=== PATIENT | female | born 1945 | race Caucasian/White ===

== ENCOUNTER 2017-12-24 14:13 | Observation (INO) | payer MEDICARE ==
[2017-12-24] MEDS ORDERED: 0.9 % SODIUM CHLORIDE 1,000 ML BAG IV ONE ×3 (14:41→17:34)
[2017-12-24] MEDS ORDERED: ONDANSETRON HCL IV 4 MG/2 ML VIAL IVP ONE ×2 (14:41→16:44)
--- NOTE | 2017-12-24 14:45 | Emergency Department Record ---
History of Present Illness - General Chief Complaint: Passed out Stated Complaint: WEAK Time Seen by Provider: 12/24/17 14:35 Source: Patient Mode of Arrival: Wheelchair Limitations: No limitations - History of Present Illness Initial Comments: The patient is here due to not feeling well for the last 2 weeks. She has had intermittent weakness and nausea with a bad cough. There has been no reported fever, chills, or CP but she has been very fatigued. The patient states her recently had food poisoning and when she was over in the [facility] getting and xray she became very weak and possibly passed out and vomited and possibly had diarrhea. MD Complaint: Almost passed out, Collapsed, [place] faint Onset/Timin -: Minutes(s) Prodromal Symptoms: Lightheaded -: Second(s) Injuries Sustained Associated with Event: None Current Symptoms: Nausea, Weakness Context: Other Treatments Prior to Arrival: None - [place] Coma Scale Eye Response: (4) Open spontaneously Motor Response: (6) Obeys commands Verbal Response: (5) Oriented [place] Total: 15 - Related Data On Hormonal Control: No Allergies Allergy/AdvReac Type Severity Reaction Status Date / Time Sulfa (Sulfonamide Allergy Unknown Unverified 07/13/17 16:15 Antibiotics) Travel Screening - Travel/Exposure Within Last 30 Days Have you traveled within the last 30 days?: No Review of Systems Constitutional: Reports: Chills, Malaise. Denies: Fever Eyes: Denies: Eye discharge ENT: Reports: Congestion Respiratory: Reports: Cough. 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) - CARDIOVASCULAR Hx Cardio Disorders: No - NEURO Hx Neuro Disorders: Yes Hx Dizziness: Yes (syncopal episodes) - GI Hx GI Disorders: No - Hx Genitourinary Disorders: No - ENDOCRINE Hx Endocrine Disorders: Yes Hx Thyroid Disease: Yes - MUSCULOSKELETAL Hx Musculoskeletal Disorders: Yes Hx Arthritis: Yes (hands/neck/feet) - PSYCH Hx Psych Problems: No - HEMATOLOGY/ONCOLOGY Hx Hematology/Oncology Disorders: Yes Hx Anemia: Yes Hx Blood Transfusions: No Family Medical History Any Significant Family History?: Yes Hx Cancer: Father, Mother, Grandparents *Cancer Comment: lung, pancreatic Hx Diabetes: Father, Mother, Grandparents Physical Exam - General General Appearance: Alert, Oriented x3, Cooperative, Mild distress (due to weakness.) - Head Head exam: Atraumatic, Normocephalic - Eye Eye exam: Normal appearance, PERRL Pupils: Normal accommodation - ENT ENT exam: Normal exam Throat exam: Normal inspection. negative: Tonsillar erythema, Tonsillar exudate - Neck Neck exam: Normal inspection, Full ROM. negative: Tenderness - Respiratory Respiratory exam: Normal lung sounds bilaterally. negative: Rales, Respiratory distress, Rhonchi, Stridor, Wheezes - Cardiovascular Cardiovascular Exam: Regular rate, Normal rhythm, Normal heart sounds - GI/Abdominal GI/Abdominal exam: Soft, Normal bowel sounds. negative: Tenderness - Extremities Extremities exam: Normal inspection, Full ROM, Normal capillary refill. negative: Tenderness - Back Back exam: Reports: Normal inspection - Neurological Neurological exam: Alert, Oriented X3. negative: Altered, Motor sensory deficit - Skin Skin exam: negative: Rash Course Vital Signs 12/24/17 14:20 Temperature 98.1 F Pulse Rate 75 Respiratory 18 Rate Blood Pressure 142/79 Pulse Ox 89 L - Reevaluation(s) Reevaluation #1: The patient is doing better at this time. She is still having intermittent nausea and vomiting but no diarrhea yet. 12/24/17 17:00 Reevaluation #2: The patient denies any CP or SOB. She is still having intermittent nausea, vomiting and diarrhea. The chest CT did possibly demonstrate an early pneumonia on CT which was consistent with the xray. I also did discuss the R breast CT finding which the patient states is old and due to a previous breast implant. She is encouraged to see her PCP when this illness is gone to double check the findings. Due to the constellation of findings she will be admitted to the hospital for observation, monitoring and further blood testing. 12/24/17 17:51 Medical Decision Making - Data Complexity MDM Data: Labs Ordered and/or Reviewed, X-Ray Ordered and/or Reviewed, EKG Ordered and/or Reviewed - Lab Data Result diagrams: 12/24/17 14:34 12/24/17 14:34 - EKG Data -: EKG Interpreted by Me EKG: No Acute Changes, Normal EKG - Radiology Data Radiology results: Report reviewed (CXR: Atelectasis L base, O/W neg. Chest CT : Neg for PE or Dissection. There is some fluid and calcification under the R breast outside of the chest wall. The patient states it is due to a breast implant that exploded.) Disposition Disposition: Admit Clinical Impression: Pneumonia Qualifiers: Pneumonia type: due to unspecified organism Laterality: left Lung location: lower lobe of lung Qualified Code(s): J18.1 - Lobar pneumonia, unspecified organism Syncope Qualifiers: Syncope type: unspecified Qualified Code(s): R55 - Syncope and collapse Disposition: Still a Patient at [facility] Decision to Admit: Admit from ER Decision to Admit Date: 12/24/17 Decision to Admit Time: 17:54 Accepting Physician: Dinesh Time Discussed w/Accepting Physician: 17:54 Condition: (2) Stable Time of Disposition: 17:55 Quality - Quality Measures Quality Measures: N/A - Blood Pressure Screening View Details: Yes Does Patient Have Any of the Following: No Blood Pressure Classification: Hypertensive Reading Systolic Measurement: 142 Diastolic Measurement: 79 Screening for High Blood Pressure: < Pre-Hypertensive BP, F/U Documented > [ [id number]] Pre-Hypertensive Follow-up Interventions: Referral to alternative/primary care provider.
[2017-12-24] MEDS ORDERED: IPRATROPIUM/ALBUTEROL (0.5MG/3MG) NEB INH ONE (14:46)
[2017-12-24 14:55] LABS: BASO % 0.2 % (0-6); EOS % 2.1 % (0-6); GRAN % 78.4 % (47-80); HEMATOCRIT 48.1 % (35.0-47.0); HEMOGLOBIN 16.2 gm/dl (11.6-16.0); LYMPH % 13.7 % (16-45); MEAN CELL VOLUME 92.9 fl (81-97); MEAN CORPUSCULAR HGB CONC 33.7 g/dl (32-36); MEAN PLATELET VOLUME 9.6 fl (7.4-10.4); MONO % 5.6 % (0-9); PLATELET COUNT 403 K/uL (130-400); RED BLOOD COUNT 5.18 M/uL (3.80-5.40); WHITE BLOOD COUNT W/O DIFF 10.1 K/uL (4.2-12.2)
[2017-12-24 14:57] LABS: MEAN CORPUSCULAR HEMOGLOBIN 31.2 pg (27-33)
[2017-12-24 15:04] LABS: BLOOD UREA NITROGEN 20 mg/dL (8-23); EST GLOMERULAR FILTRATION RATE 58 mL/min
[2017-12-24 15:06] LABS: INR 1.02
[2017-12-24 15:07] LABS: GLUCOSE,RANDOM 130 mg/dL (74-109)
[2017-12-24 15:09] LABS: CREATINE PHOSPHOKINASE 50 U/L (26-192)
[2017-12-24 15:14] LABS: CKMB 1.2 ng/mL (<3.77)
[2017-12-24 15:21] LABS: NTpro B-NATRIURETIC PEPTIDE 72.93 pg/mL (<125)
[2017-12-24 15:37] LABS: INFLUENZA A NEGATIVE (NEGATIVE); INFLUENZA B NEGATIVE (NEGATIVE)
[2017-12-24] MEDS ORDERED: CEFTRIAXONE SODIUM 1 GM in 0.9 % SODIUM CHLORIDE 100ML 100 ML IVPB ONE (16:03)
[2017-12-24] MEDS ORDERED: AZITHROMYCIN 500 MG in 0.9 % SODIUM CHLORIDE 250ML 250 ML IVPB ONE (16:03)
[2017-12-24] MEDS ORDERED: PROMETHAZINE HCL 12.5 MG in 0.9 % SODIUM CHLORIDE 100ML 100 ML IVPB ONE (17:47)
[2017-12-24] MEDS ORDERED: AZITHROMYCIN 500 MG in 0.9 % SODIUM CHLORIDE 250ML 250 ML IVPB SCH (20:07)
[2017-12-24] MEDS ORDERED: 0.9 % SODIUM CHLORIDE 1000ML 1,000 ML IV PRN (20:07)
[2017-12-24] MEDS: CEFTRIAXONE SODIUM 1 GM in 0.9 % SODIUM CHLORIDE 100ML 100 ML IVPB SCH (20:08)
[2017-12-24] MEDS: ACETAMINOPHEN 500 MG TABLET PO PRN (22:04)
[2017-12-24 22:15] LABS: CKMB < 1.0 ng/mL (<3.77)
--- NOTE | 2017-12-25 05:23 | History & Physical ---
History of Present Illness - Date of Service Date of Service for History & Physical: 12/25/17 - History of Present Illness Admitting Diagnosis: 1. Acute Vomiting and Diarrrhea with Dehydration. 2. Syncope and collapse with L sided Pneumonia. History of Present Illness: Karina is a 72 year-old female who presented to the ED on after experiencing a syncopal episode while accompanying her in [facility] here. She stated that she felt faint and vomited once. She stated that over the past 2 weeks, she has felt week, fatigued, and developed a cough. Her history includes hypothyroidism, ex-smoker, right breast implant rupture, pos TB test, and syncopal episodes. In the ED, her oxygen saturation was 89% on room air, RR 18, BP 142/79, HR 75, and T 98.1. Her CBC and CMP were unremarkable, series of troponins did not show any elevation, influenza was negative. Her EKG showed normal sinus rhythm. Her chest x-ray showed mild atelectasis and her CTA demonstrated a patch of atelectasis in her left lower lobe that my demonstrate alveolitis caused by early pneumonia. She was started on IV antibiotics, rocephin 1gm daily and azithromycin 500mg q12h and admitted for observation, monitoring, and treatment of pneumonia. 12/25/17 0930: Pt. is resting comfortably in bed. She states that she feels much improved this morning. She tolerated her breakfast well and she has been up to the bathroom 3 times with loose stool. She states that her was in [facility] on 12/24 with GI symptoms (nausea/vomiting/diarrhea). She is receiving IV fluids 0.9% NaCl at 125ml/hr, and she is drinking fluids without complaint. Pt. has remained afebrile and CBC with diff has remained unremarkable, anion gap returned to normal range at 13.0. PT/OT evals ordered because of syncopal episode and completed- no home pt/ot needs. Pt. states she lives at home with independently. Plan to d/c iv fluids, saline lock, change abx from iv to po and discharge home this afternoon. Travel Screening - Travel/Exposure Within Last 30 Days Have you traveled within the last 30 days?: No - Travel/Exposure Within Last Year Have you traveled outside the [place] in the last year?: No - Additonal Travel Details Have you been exposed to anyone with a communicable illness?: No Review of Systems Constitutional: Reports: Chills, Malaise. Denies: Fever Eyes: Denies: Eye discharge ENT: Reports: Congestion Respiratory: Reports: Cough. Denies: Dyspnea Cardiovascular: Denies: Arrhythmia, Chest pain Endocrine: Reports: Fatigue Gastrointestinal: Denies: Abdominal pain Genitourinary: Denies: Dysuria Musculoskeletal: Denies: Back pain Skin: Reports: As per HPI. Denies: Bruising, Change in color, Change in hair/ nails, Lesions, Pruritus, Rash Neurological: Reports: As per HPI. Denies: Abnormal gait, Confusion, Headache, Numbness, Paresthesias, Seizure, Tingling, Tremors, Vertigo, Weakness Psychiatric: Reports: As per HPI. Denies: Anxiety, Auditory hallucinations, Depression, Homicidal thoughts, Suicidal thoughts, Visual hallucinations Hematological/Lymphatic: Reports: As per HPI. 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) - CARDIOVASCULAR Hx Cardio Disorders: No - NEURO Hx Neuro Disorders: Yes Hx Dizziness: Yes (syncopal episodes) - GI Hx GI Disorders: No - Hx Genitourinary Disorders: No - ENDOCRINE Hx Endocrine Disorders: Yes Hx Diabetes: Yes Hx Thyroid Disease: Yes - MUSCULOSKELETAL Hx Musculoskeletal Disorders: Yes Hx Arthritis: Yes (hands/neck/feet) - PSYCH Hx Psych Problems: No - HEMATOLOGY/ONCOLOGY Hx Hematology/Oncology Disorders: Yes Hx Anemia: Yes Hx Blood Transfusions: No Family Medical History Any Significant Family History?: Yes Hx Cancer: Father, Mother, Grandparents *Cancer Comment: lung, pancreatic Hx Diabetes: Father, Mother, Grandparents H&P Meds/Allergies - Allergies Allergies: Allergies Allergy/AdvReac Type Severity Reaction Status Date / Time Sulfa (Sulfonamide Allergy Unknown Unverified 07/13/17 16:15 Antibiotics) - Active Medications Active Medications: Current Medications Acetaminophen (Tylenol 500mg Tab) 1,000 mg PO Q8H PRN PRN Reason: Pain - General Last Admin: 12/24/17 22:04 Dose: 1,000 mg Sodium Chloride () 1,000 mls @ 125 mls/hr IV .Q8H PRN PRN Reason: LARGE VOLUME IV Ceftriaxone Sodium 1 gm/ (Sodium Chloride) 100 mls @ 200 mls/hr IVPB Q12H [facility] Stop: 12/29/17 20:08 Last Admin: 12/24/17 20:08 Dose: Not Given Azithromycin 500 mg/ Sodium (Chloride) 250 mls @ 250 mls/hr IVPB Q24H [facility] Stop: 12/29/17 20:08 Last Admin: 12/24/17 20:21 Dose: Not Given Levothyroxine Sodium (Synthroid) 100 mcg PO DAILY [facility] Physical Exam - Vital Signs Vital Signs: Vital Signs - Last 24 Hrs Temp Pulse Pulse Resp BP BP Pulse Ox 12/24/17 23:22 99.6 F 99 H 20 117/63 94 L 12/24/17 21:34 88 16 92 L 12/24/17 21:00 88 18 12/24/17 20:07 100.0 F H 116 H 18 166/74 87 L - General General Appearance: Alert, Oriented x3, Cooperative, No acute distress Limitations: No limitations - Head Head exam: Atraumatic, Normocephalic - Eye Eye exam: Normal appearance, PERRL Pupils: Normal accommodation - ENT ENT exam: Normal exam Throat exam: Normal inspection. negative: Tonsillar erythema, Tonsillar exudate - Neck Neck exam: Normal inspection, Full ROM. negative: Tenderness - Respiratory Respiratory exam: Normal lung sounds bilaterally. negative: Rales, Respiratory distress, Rhonchi, Stridor, Wheezes - Cardiovascular Cardiovascular Exam: Regular rate, Normal rhythm, Normal heart sounds - GI/Abdominal GI/Abdominal exam: Soft, Normal bowel sounds. negative: Tenderness - Extremities Extremities exam: Normal inspection, Full ROM, Normal capillary refill. negative: Tenderness - Back Back exam: Reports: Normal inspection - Neurological Neurological exam: Alert, Oriented X3. negative: Altered, Motor sensory deficit - Skin Skin exam: negative: Rash Results - Labs Result Diagrams: 12/25/17 06:16 12/25/17 06:16 Labs Last 24 Hours: Laboratory Results - last 24 hr 12/24/17 21:50 CK-MB (CK-2) < 1.0 Troponin T < 0.010 - Imaging and Cardiology CT scan - chest Status: Report reviewed VTE H&P Assessment - Risk for VTE Risk for VTE: Yes Risk Level: Very Low Risk Assessment Date: 12/25/17 Risk Assessment Time: 12:09 VTE Orders Placed or Will Be Placed: No VTE Reason for No Prophylaxis: Not Indicated (Plan to discharge home this evening, mobility not impaired) Plan - Detailed Diagnosis and Plan (1) Pneumonia Current Visit: Yes Status: Acute Qualifiers: Pneumonia type: due to unspecified organism Laterality: left Lung location: lower lobe of lung Qualified Code(s): J18.1 - Lobar pneumonia, unspecified organism Base Code: J18.9 - PNEUMONIA, UNSPECIFIED ORGANISM Comment: 12/25/17 1100: LLL pneumonia seen of chest CTA. Pt. was started on azithromycin 500mg IV qd and rocephin 1gm q12h IV. Pt. remains afebrile and WBC within normal limits. Plan to change IV antibiotics to PO- Azithromycin 250mg for 4 more days outpatient and cefdinir 300mg bid for 4 more days outpatient. Plan to dischareg home this evening. (2) Diarrhea Current Visit: Yes Status: Acute Base Code: R19.7 - DIARRHEA, UNSPECIFIED Comment: 12/25/17 1100: Pt. states she has had 5 loose stools since she arrived here on 12/24. She denies abdominal cramping or blood in stool. She states she was with her in [place] emergency department yesterday because he was having similar complaints- GI viral infection. Continue to encourage fluids. Plan to monitor for increasing frequency of loose stools. Consider d/c home today unless frequency of loose stools increase, then may obtain stool cultures. (3) Syncope Current Visit: Yes Status: Acute Qualifiers: Syncope type: unspecified Qualified Code(s): R55 - Syncope and collapse Base Code: R55 - SYNCOPE AND COLLAPSE Comment: 12/25/17 1200: Pt. had syncopal episode on 12/24 after experiencing fatigue, weakness and cough for 2 weeks. Pt. denies headache, chest pain, vision change. Per pt.- she has history of several syncopal episodes, usually associated with heat and feelint faint. Pos LLL pneumonia, syncope likely related to pneumonia infection. Continue abx: azithromycin 250mg dialy and cefdinir 300mg bid for 5 days total. PT/OT evaluations ordered and performed- no home PT/OT needs. (4) Full code status Current Visit: Yes Status: Acute Base Code: Z78.9 - OTHER SPECIFIED HEALTH STATUS Comment: 12/25/17- Pt. is full code status
--- NOTE | 2017-12-25 07:01 | RADIOLOGY REPORT ---
EXAM: CHEST, TWO VIEWS HISTORY: SYNCOPAL EPISODE ONE HOUR AGO, VOMITING. TECHNIQUE: Upright PA and lateral views of the chest were obtained. Comparison: Two view chest radiographic examination dated 07/13/17. FINDINGS: The heart is not enlarged and the pulmonary vasculature is nondilated. The aortic knob is atherosclerotic. Minor biapical pleural and parenchymal scarring redemonstrated. There is mild elevation of the left hemidiaphragm. There is likely minor linear atelectasis or less likely scarring in the left base. The lungs and pleural spaces are otherwise clear. There are degenerative changes scattered within the visualized spine. IMPRESSION: MILD ELEVATION OF THE LEFT HEMIDIAPHRAGM. THERE IS ASSOCIATED MINOR LINEAR ATELECTASIS VERSUS SCARRING. THE EXAMINATION IS OTHERWISE UNCHANGED SINCE . JOB NUMBER: [id number] [facility]
[2017-12-25 07:09] LABS: HEMATOCRIT 40.3 % (35.0-47.0); HEMOGLOBIN 13.4 gm/dl (11.6-16.0); MEAN CELL VOLUME 95.3 fl (81-97); MEAN CORPUSCULAR HEMOGLOBIN 31.7 pg (27-33); MEAN CORPUSCULAR HGB CONC 33.3 g/dl (32-36); MEAN PLATELET VOLUME 9.7 fl (7.4-10.4); PLATELET COUNT 289 K/uL (130-400); RED BLOOD COUNT 4.23 M/uL (3.80-5.40); RED CELL DISTRIBUTION WIDTH 13.4 % (11.5-14.5); WHITE BLOOD COUNT W/O DIFF 10.3 K/uL (4.2-12.2)
--- NOTE | 2017-12-25 07:13 | CT ANGIOGRAM REPORT ---
EXAM: EMERGENCY CTA OF THE CHEST FOR PE WITH POST PROCESSING HISTORY: DIFFICULTY IN BREATHING, ELEVATED D-DIMER, POSSIBLE PE. TECHNIQUE: CTA of the chest was performed following the intravenous administration of 71 ml of Omnipaque 350 as the IV contrast. Post processing on an independent workstation was performed. Multiple 3D MIP series obtained. Comparison: No prior chest CT with which to compare. Comparison is made with the chest x-ray performed earlier today on 12/24/17. FINDINGS: No definite PE identified. No thoracic aortic aneurysm or dissection is seen. No pleural or pericardial effusion evident. The heart size is within normal limits. Some mildly prominent mediastinal nodes measuring up to about 11 mm in maximum short axis are nonspecific, although may simply be reactive. There is a small hiatal hernia present. No pneumothorax evident. There is probably some dependent atelectasis in both lower lobes, but a more confluent patch of infiltrate in the lingula which could be a small patch of pneumonitis and also slightly greater ground glass opacity in the left lower lobe compared to the right which could also represent some mild alveolitis. Scattered spurring throughout the thoracic spine. Note is made of an asymmetrically prominent density along the right anterior chest wall deep to the right breast. This appears to have a fluid component measuring about 4 x 1.1 cm in size with slight calcification along the wall and also a prominent soft tissue density extending medially from this measuring about 3.5 x 1.0 cm in size. This may be due to old injury or surgery. An unusual and relatively deep breast mass is difficult to absolutely exclude. Correlation with patient's known surgical/trauma history suggested and follow- up bilateral mammography may be useful if not recently obtained. IMPRESSION: 1. NO DEFINITE PE IDENTIFIED. 2. SMALL HIATAL HERNIA. 3. THERE IS PROBABLY A FLUID COLLECTION IN THE RIGHT ANTERIOR CHEST WALL QUITE DEEP CONTAINING SOME CALCIFICATION ALONG THE WALL AND MEASURING ABOUT 4 X 1.1 CM IN SIZE. THERE IS SOME GREATER SOFT TISSUE DENSITY PARTICULARLY ALONG ITS MEDIAL ASPECT WELL COMPARED WITH THE LEFT CHEST WALL. FURTHER EVALUATION DESCRIBED ABOVE SUGGESTED. 4. PATCH OF ATELECTASIS OR INFILTRATE IN THE LINGULA AND ALSO A GREATER GROUND GLASS DENSITY IN THE LEFT LOWER LOBE COMPARED TO THE RIGHT LOWER LOBE MAY BE SOME ALVEOLITIS. 5. SOME MILDLY PROMINENT NONSPECIFIC MEDIASTINAL NODES. JOB NUMBER: [id number] [facility]
[2017-12-25 07:41] LABS: CKMB < 1.0 ng/mL (<3.77)
[2017-12-25 07:59] LABS: PLATELET ESTIMATE NORMAL (NORMAL)
[2017-12-25] MEDS: CEFTRIAXONE SODIUM 1 GM in 0.9 % SODIUM CHLORIDE 100ML 100 ML IVPB SCH (08:00)
[2017-12-25] MEDS: ACETAMINOPHEN 500 MG TABLET PO PRN (08:26)
[2017-12-25] MEDS ORDERED: LEVOTHYROXINE SODIUM 100 MCG TABLET PO SCH (10:00)
--- NOTE | 2017-12-25 11:38 | Rehab Evaluation ---
Patient Information - Patient Information Diagnosis: acute vomiting and diarrhea with dehydration, syncope Ordered Treatment: OT Evaluate and Treat Status: Initial Evaluation Surgery: No Past Medical/Surgical Hx: PAST MEDICAL/SURGICAL HISTORY Past Surgical History tonsils bunyon d&c tubal implants/then removal PMH - Respiratory Hx Respiratory Disorders Yes Hx Pneumonia Yes Hx Tuberculosis Yes: positive tb test PMH - Cardiovascular Hx Cardiovascular Disorders No PMH - Neuro Hx Neurological Disorders Yes Hx Dizziness Yes: syncopal episodes PMH - GI Hx Gastrointestinal Disorders No PMH - Hx Genitourinary Disorders No PMH - Endocrine Hx Endocrine Disorders Yes Hx Diabetes Yes Hx Thyroid Disease Yes PMH - Musculoskeletal Hx Musculoskeletal Disorders Yes Hx Arthritis Yes: hands/neck/feet PMH - Psych Hx Psychiatric Problems No PMH - Hematology/Oncology Hx Hematology/Oncology Yes Disorders Hx Anemia Yes Premorbid Status: Detail (Pt lives with spouse and a friend (who lives in the basement) in a one story house with basement. She stays on the main floor. She has 5 steps and 1 railing at the garage entrance. She has a tub/shower combination with grab bars and usually stands to shower although she has a shower chair if needed. She has elevated toilet seats, no grab bars. She ambulates without an assistive device and is Ind with all self cares, home mgmt , meal prep and laundry. She has a 2 wheeled walker.) Precautions: [place], Fall - Time With Patient Total Time Spent With Patient (Min): 35 Treatment Procedures: Detail (OT eval low complexity) Subjective Information - Subjective Information Per Patient Objective Data - Pain Pain Present: Yes (5-7/10 back and neck pain) - Mental Status Patient Orientation: Oriented x3 - Visual Perception Appears within normal limits for therapeutic activities - ROM Within normal limits (King UE AROM WNL) - Strength/Tone Within normal limits (King UE strength 4+/5 throughout) - Coordination Appears within normal limits for therapeutic activities - Bed Mobility Independent (Ind with supine to sit and sit to supine.) - Transfers Independent (Ind with sit to stand from EOB) - Balance Balance Sitting: Good Balance Standing: Good - Sensation Intact - Gait Detail (Pt ambulated in hallway with SBA using 2 liters of oxygen.) - ADL's/IADL's Detail (Pt reports she has no concerns about self care activities, she is just weak but is feeling better everyday.) Therapy Assessment - Therapy Assessment Detail (Pt reports no concerns with ADLs after discharge, she is Ind with functional mobility and presents with WNL UE function.) Problem List - Problem List Occupational Therapy Problem List: Detail (No current OT problems identified) Goals - Goals Occupational Therapy Goals: No current OT goals identified Prognosis - Prognosis Good Plan - Plan Occupational Therapy Plan: No further IP OT recommended. Thank you for this referral.
--- NOTE | 2017-12-25 11:48 | Rehab Evaluation ---
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 PMH - Cardiovascular Hx Cardiovascular Disorders No PMH - Neuro Hx Neurological Disorders Yes Hx Dizziness Yes: syncopal episodes PMH - GI Hx Gastrointestinal Disorders No PMH - Hx Genitourinary Disorders No PMH - Endocrine Hx Endocrine Disorders Yes Hx Diabetes Yes Hx Thyroid Disease Yes PMH - Musculoskeletal Hx Musculoskeletal Disorders Yes Hx Arthritis Yes: hands/neck/feet PMH - Psych Hx Psychiatric Problems No PMH - Hematology/Oncology Hx Hematology/Oncology Yes Disorders Hx Anemia Yes Premorbid Status: Detail (Pt lives with spouse and a friend (who lives in the basement) in a one story house with basement. She stays on the main floor. She has 5 steps and 1 railing at the garage entrance. She has a tub/shower combination with grab bars and usually stands to shower although she has a shower chair if needed. She has elevated toilet seats, no grab bars. She ambulates without an assistive device and is Ind with all self cares, home mgmt , meal prep and laundry. She has a 2 wheeled walker.) Precautions: Means, Fall - Time With Patient Total Time Spent With Patient (Min): 20 Treatment Procedures: Detail (Initial Evaluation) Subjective Information - Subjective Information Per Patient (The patient complained of back and kneck pain which she rated 5-7. The patient complained of generalized weakness.) Objective Data - Mental Status Patient Orientation: Oriented x3 - Visual Perception Appears within normal limits for therapeutic activities - ROM Within normal limits (The patient's LE AROM is WNL,) - Strength/Tone Within normal limits (The patient's LE strength is 4+ to 5/5 except for R hip flexors 4/5.) - Bed Mobility Independent (The patient was independent with supine to and from sit transfer.) - Transfers Independent (The patient was independent with sit to and from stand transfer.) - Balance Balance Sitting: Good Balance Standing: Good (The patient was able to stand with narrow base support.) - Gait Detail (The patient ambulated independently without device a distance of 160 feet x 1 with 2 L of O2.) Therapy Assessment - Therapy Assessment Detail (The patient was Independent with bed mobility, transfers and ambulation. The patient does not need ongoing PT.) Problem List - Problem List Physical Therapy Problem List: Detail (The patient has no PT problems. Patient has normal strength,ROM and balance and is independent with all mobility.) Occupational Therapy Problem List: Detail (No current OT problems identified) Goals - Goals Physical Therapy Goals: No current PT goals. Occupational Therapy Goals: No current OT goals identified Plan - Plan Physical Therapy Plan: No further PT is recommended. Occupational Therapy Plan: No further IP OT recommended. Thank you for this referral.
--- NOTE | 2017-12-25 17:10 | Discharge Summary ---
Providers Discharge Summary Date: 12/25/17 Date of admission: 12/24/17 18:56 Attending physician: Geoff Montiel Primary care physician: GERARD GASTON M.D. Physical Exam - Vital Signs Vital Signs: Vital Signs - Last 24 Hrs Temp Pulse Pulse Resp BP BP Pulse Ox 12/25/17 14:10 84 16 92 L 12/25/17 14:00 97.6 F 77 14 108/52 95 12/25/17 10:00 98.6 F 80 16 119/69 95 12/25/17 07:16 86 18 95 12/25/17 05:58 98.4 F 80 18 122/71 94 L 12/24/17 23:22 99.6 F 99 H 20 117/63 94 L 12/24/17 21:34 88 16 92 L 12/24/17 21:00 88 18 12/24/17 20:07 100.0 F H 116 H 18 166/74 87 L - General General Appearance: Alert, Oriented x3, Cooperative, No acute distress Limitations: No limitations - Head Head exam: Atraumatic, Normocephalic - Eye Eye exam: Normal appearance, PERRL Pupils: Normal accommodation - ENT ENT exam: Normal exam Throat exam: Normal inspection. negative: Tonsillar erythema, Tonsillar exudate - Neck Neck exam: Normal inspection, Full ROM. negative: Tenderness - Respiratory Respiratory exam: Normal lung sounds bilaterally. negative: Rales, Respiratory distress, Rhonchi, Stridor, Wheezes - Cardiovascular Cardiovascular Exam: Regular rate, Normal rhythm, Normal heart sounds - GI/Abdominal GI/Abdominal exam: Soft, Normal bowel sounds. negative: Tenderness - Extremities Extremities exam: Normal inspection, Full ROM, Normal capillary refill. negative: Tenderness - Back Back exam: Reports: Normal inspection - Neurological Neurological exam: Alert, Oriented X3. negative: Altered, Motor sensory deficit - Skin Skin exam: negative: Rash Hospitalization - Hospitalization Admission Diagnosis: 1. Acute Vomiting and Diarrrhea with Dehydration. 2. Syncope and collapse with L sided Pneumonia. - Problem List/Discharge Diagnosis (1) Pneumonia Current Visit: Yes Status: Acute Discharge Diagnosis: Pneumonia type: due to unspecified organism Laterality: left Lung location: lower lobe of lung Qualified Code(s): J18.1 - Lobar pneumonia, unspecified organism Base Code: J18.9 - PNEUMONIA, UNSPECIFIED ORGANISM Comment: 12/25/17 1100: LLL pneumonia seen of chest CTA. Pt. was started on azithromycin 500mg IV qd and rocephin 1gm q12h IV. Pt. remains afebrile and WBC within normal limits. Plan to change IV antibiotics to PO- Azithromycin 250mg for 4 more days outpatient and cefdinir 300mg bid for 4 more days outpatient. Plan to dischareg home this evening. (2) Diarrhea Current Visit: Yes Status: Acute Base Code: R19.7 - DIARRHEA, UNSPECIFIED Comment: 12/25/17 1100: Pt. states she has had 5 loose stools since she arrived here on 12/24. She denies abdominal cramping or blood in stool. She states she was with her in [facility] yesterday because he was having similar complaints- GI viral infection. Continue to encourage fluids. Plan to monitor for increasing frequency of loose stools. Consider d/c home today unless frequency of loose stools increase, then may obtain stool cultures. (3) Syncope Current Visit: Yes Status: Acute Discharge Diagnosis: Syncope type: unspecified Qualified Code(s): R55 - Syncope and collapse Base Code: R55 - SYNCOPE AND COLLAPSE Comment: 12/25/17 1200: Pt. had syncopal episode on 12/24 after experiencing fatigue, weakness and cough for 2 weeks. Pt. denies headache, chest pain, vision change. Per pt.- she has history of several syncopal episodes, usually associated with heat and feelint faint. Pos LLL pneumonia, syncope likely related to pneumonia infection. Continue abx: azithromycin 250mg dialy and cefdinir 300mg bid for 5 days total. PT/OT evaluations ordered and performed- no home PT/OT needs. (4) Full code status Current Visit: Yes Status: Acute Base Code: Z78.9 - OTHER SPECIFIED HEALTH STATUS Comment: 12/25/17- Pt. is full code status - Hospitalization Course Disposition: Home, Self-Care Hospital Course: Karina is a 72 year-old female who presented to the ED on after experiencing a syncopal episode while accompanying her in [facility] here. She stated that she felt faint and vomited once. She stated that over the past 2 weeks, she has felt week, fatigued, and developed a cough. Her history includes hypothyroidism, ex-smoker, right breast implant rupture, pos TB test, and syncopal episodes. In the ED, her oxygen saturation was 89% on room air, RR 18, BP 142/79, HR 75, and T 98.1. Her CBC and CMP were unremarkable, series of troponins did not show any elevation, influenza was negative. Her EKG showed normal sinus rhythm. Her chest x-ray showed mild atelectasis and her CTA demonstrated a patch of atelectasis in her left lower lobe that my demonstrate alveolitis caused by early pneumonia. She was started on IV antibiotics, rocephin 1gm daily and azithromycin 500mg q12h and admitted for observation, monitoring, and treatment of pneumonia. 12/25/17 0930: Pt. is resting comfortably in bed. She states that she feels much improved this morning. She tolerated her breakfast well and she has been up to the bathroom 3 times with loose stool. She states that her was in [facility] on 12/24 with GI symptoms (nausea/vomiting/diarrhea). She is receiving IV fluids 0.9% NaCl at 125ml/hr, and she is drinking fluids without complaint. Pt. has remained afebrile and CBC with diff has remained unremarkable, anion gap returned to normal range at 13.0. PT/OT evals ordered because of syncopal episode and completed- no home pt/ot needs. Pt. states she lives at home with independently. Plan to d/c iv fluids, saline lock, change abx from iv to po and discharge home this afternoon. 12/25/17 1700: Pt. continues to improve. She states that she feels less fatigued and weak. She has been tolerating food and fluids well. Plan to discharge home this evening and continue po antibiotics (azithromycin 250mg daily and cefdinir 300mg bid for total of 5 days). Abnormal Labs: Abnormal Lab Results 12/25/17 12/25/17 Range/Units 06:16 06:16 Band Neutrophils % 18.0 H (0-5) % Lymphocytes 7.0 L (16-45) % Creatinine 1.0 H (0.5-0.9) mg/dL Calcium 7.5 L (8.8-10.2) mg/dL Condition at Discharge: (2) Stable VTE Discharge VTE Reason For No Overlap Therapy: Not Indicated Discharge Medications - Discharge Medications Prescriptions: Azithromycin [Zithromax] 250 mg PO DAILY 4 Days #4 tab Cefdinir 300 mg PO BID 4 Days #7 capsule Home Medications: Ambulatory Orders Levothyroxine Sodium 100 mcg PO DAILY 90 Days #90 07/13/17 [Last Taken Unknown] Acetaminophen [Tylenol 500Mg Tab] 1,000 mg PO Q8H PRN tablet 12/25/17 [Last Taken Unknown] Azithromycin [Zithromax] 250 mg PO DAILY 4 Days #4 tab 12/25/17 [Last Taken Unknown] Cefdinir 300 mg PO BID 4 Days #7 capsule 12/25/17 [Last Taken Unknown] Discharge Plan - Discharge Instructions Activity at Discharge: Increase Activity as Tolerated Diet at Discharge: Regular Diet Instructions: Syncope (ED) Additional Instructions: Continue oral antibiotics -azithromycin 250mg daily for 4 more days -cefdinir 300mg every 12 hours for 4 more days Take both medications with food, add a probiotic to avoid upset stomach Follow up with PCP in 5-7 days, return to ED if symptoms worsen (fever, severe nausea, vomiting) Quality Measures - Quality Measures Quality Measures: Advance Directives, Documentation of Current Medications in Medical Record, Elder Maltreatment Screen and Follow-Up Plan, Screening for High Blood Pressure and F/U Documented - Current Medications Quality Measure: Measure #130: Documentation of Current Medications Documentation of Current Medications: <Current Medications Documented/Reviewed> [R8318] - Blood Pressure Screening Quality Measure: Screening for High Blood Pressure and Follow-Up Documented Does Patient Have Any of the Following: No Blood Pressure Classification: Hypertensive Reading Systolic Measurement: 142 Diastolic Measurement: 79 Screening for High Blood Pressure: < Normal BP, F/U Not Required > [Z1193] - Advance Directives Quality Measure: Measure #47: Care Plan Advance Directives Established: No Advance Directives Information Provided To Patient: No Advance Directives on File: No (Pamphlet information given to patient.) Living Will: No Power of Support Team Assoc: Yes Power of Support Team Assoc Name: saba Gu[facility] Advance Care Planning: <Care Plan/Decision Maker Documented; Discussed & Documented> [6038F] - Elder Abuse Suspicion Index Screening: Elder Abuse Suspicion Index Screening Rely on people for bathing, dressing, shopping, banking, etc: No Prevented from getting food, clothes, medication, etc: No Made to feel shamed or threatened by someone: No Forced to sign papers or use money against will: No Feel afraid, touched in ways not wanted or hurt physically: No Poor eye contact, withdrawn, malnourished, cuts or bruises: No Screening Result: Negative result EASI Reference Information: Asif BENJAMIN, Charlie Mercado, Isabel Clarke, Diego Starr.Development and validation of a tool to assist physicians identification of elder abuse: The Elder Abuse Suspicion Index (EASI ). Journal of Elder Abuse and Neglect, 2008; 20 (3): 276-300. - Elder Maltreatment Screen Quality Measures: Elder Maltreatment Screen and Follow-Up Plan Elder Maltreatment Screen: <Negative, No Follow-Up Plan Required> [G8788]
[2017-12-25] MEDS ORDERED: AZITHROMYCIN 250 MG TABLET PO SCH (20:00)
[2017-12-25] MEDS ORDERED: CEFDINIR 300 MG CAPSULE PO SCH (20:00)
[2017-12-26] MEDS ORDERED: LEVOTHYROXINE SODIUM 100 MCG TABLET PO SCH (07:00)
== END 2017-12-25 18:30 | disposition home or self-care (01) ==
LOC: ER 14:13 → MEDSURG 18:56 → UNDOADMOB 18:56
PROVIDERS: ADMIT Internal Medicine; ATTEND Internal Medicine
DX: J18.9 Pneumonia, unspecified organism (principal); R55 Syncope and collapse; R11.2 Nausea with vomiting, unspecified; R19.7 Diarrhea, unspecified; E86.0 Dehydration; Z87.891 Personal history of nicotine dependence
CPT/HCPCS: 99285 ×2; 96376; 96365; 96366; 96375; 96368; 82550; 83605; 85025; 85730; 85610; 86140; 82553 ×2; 80048 ×2; 87400; 84484 ×2; 85379; 85027; 83880; 71046; 71275; 94761; 94760; 93005 ×2; 93010; G0378 ×2; Q9967; J2405; G8978; G8979; G8980; G8987; G8988; G8989; 97165; 99220; 99223; J0456; J2550; J7030; J7050